=== PATIENT | male | born 1980 | race Caucasian/White ===

== ENCOUNTER 2018-06-15 06:29 | Emergency (ER) | payer MEDICAID ==
[~2018-06-15] VITALS: Ht 175.3 cm; Wt 70.0 kg
[2018-06-15] MEDS ORDERED: KETOROLAC 30 MG/1 ML ONE (06:39)
[2018-06-15] MEDS ORDERED: ONDANSETRON 2MG/ML, 2ML ONE (06:39)
[2018-06-15] MEDS ORDERED: ONDANSETRON 2MG/ML, 2ML IVPush ONE (07:00)
[2018-06-15] MEDS ORDERED: KETOROLAC 30 MG/1 ML IVPush ONE (07:00)
[2018-06-15] MEDS ORDERED: SODIUM CHLORIDE FLUSH 10ML SYR IVF ONE (07:00)
[2018-06-15 07:13] VITALS: BP 116/85
[2018-06-15 07:14] LABS: BASOPHILS # (AUTO) 0.07 x10^3/uL (0-0.1); BASOPHILS % (AUTO) 1 % (0-1); EOSINOPHILS # (AUTO) 0.19 x10^3/uL (0-0.4); EOSINOPHILS % (AUTO) 2 % (1-7); LYMPHOCYTES # (AUTO) 2.68 x10^3/uL (1-3.4); LYMPHOCYTES % (AUTO) 32 % (22-44); MD NO; MEAN CORPUSCULAR HEMOGLOBIN 31.7 pg (27.5-34.5); MEAN CORPUSCULAR HGB CONC 34.1 g/dL (33.2-36.2); MEAN CORPUSCULAR VOLUME 92.8 fL (81-97); MEAN PLATELET VOLUME 8.1 fL (7.4-10.4); MONOCYTES % (AUTO) 6 % (2-9); NEUTROPHILS # (AUTO) 5.06 x10^3/uL (1.8-6.8); NEUTROPHILS % (AUTO) 60 % (42-75); PLATELET COUNT 265 x10^3/uL (130-400); RED BLOOD COUNT 5.22 x10^6/uL (4.38-5.82); RED CELL DISTRIBUTION WIDTH 12.6 % (9.4-14.8)
[2018-06-15 07:17] LABS: ALANINE AMINOTRANSFERASE 32 U/L (12-78); ALBUMIN 3.8 g/dL (3.4-5.0); ANION GAP 7 mmol/L (5-15); CALCIUM 8.5 mg/dL (8.5-10.1); CHLORIDE 112 mmol/L (98-107); CREATININE 0.97 mg/dL (0.7-1.3)
[2018-06-15 07:19] LABS: ALKALINE PHOSPHATASE 105 U/L (45-117); BILIRUBIN,TOTAL 0.6 mg/dL (0.2-1.0); TOTAL PROTEIN 6.7 g/dL (6.4-8.2)
[2018-06-15 07:56] LABS: MICROSCOPIC NOT IND
[2018-06-15 08:02] LABS: CULTURE INDICATED? NO
== END 2018-06-15 08:37 | disposition home or self-care (01) ==
LOC: ED 07:23
DX: R10.11 Right upper quadrant pain (principal)
CPT/HCPCS: 36415; 71045; 76700; 80053; 81003; 83690; 85025; 93005; 96374; 96375; 99285; J1885; J2405

== ENCOUNTER 2018-07-19 20:45 | Emergency (ER) | payer MEDICAID ==
[~2018-07-19] VITALS: Ht 175.3 cm; Wt 78.6 kg
[2018-07-19 20:46] VITALS: BP 131/89
[2018-07-19] MEDS ORDERED: HYDROcodone/APAP 5/325 TABLET ONE (21:22)
[2018-07-19] MEDS ORDERED: HYDROcodone/APAP 5/325 TABLET PO ONE (21:30)
== END 2018-07-19 21:40 | disposition home or self-care (01) ==
LOC: ED 21:34
DX: K02.9 Dental caries, unspecified (principal)
CPT/HCPCS: 64400; 99284

== ENCOUNTER 2018-07-21 09:56 | Emergency (ER) | payer MEDICAID ==
[~2018-07-21] VITALS: Ht 175.3 cm; Wt 80.4 kg
[2018-07-21] MEDS ORDERED: ASPIRIN 81 MG TABLET CHEW PO ONE (10:30)
[2018-07-21] MEDS ORDERED: SODIUM CHLORIDE FLUSH 10ML SYR IVF ONE (10:30)
[2018-07-21 11:00] LABS: MEAN CORPUSCULAR HEMOGLOBIN 32.3 pg (27.5-34.5); MEAN CORPUSCULAR VOLUME 92.3 fL (81-97); MEAN PLATELET VOLUME 8.1 fL (7.4-10.4); PLATELET COUNT 243 x10^3/uL (130-400); RED BLOOD COUNT 4.98 x10^6/uL (4.38-5.82); RED CELL DISTRIBUTION WIDTH 12.5 % (9.4-14.8)
[2018-07-21 11:05] LABS: ALANINE AMINOTRANSFERASE 33 U/L (12-78); ANION GAP 6 mmol/L (5-15); CALCIUM 8.5 mg/dL (8.5-10.1); CHLORIDE 107 mmol/L (98-107); CREATININE 0.81 mg/dL (0.7-1.3)
[2018-07-21 11:09] LABS: ALKALINE PHOSPHATASE 81 U/L (45-117); BILIRUBIN,TOTAL 0.5 mg/dL (0.2-1.0); TOTAL PROTEIN 7.2 g/dL (6.4-8.2); TROPONIN I < 0.015 ng/mL (0.000-0.045)
[2018-07-21] MEDS ORDERED: ASPIRIN 81 MG TABLET CHEW ONE (11:14)
[2018-07-21 11:17] LABS: MD SCAN
[2018-07-21 11:18] LABS: BASOPHILS # (AUTO) 0.02 x10^3/uL (0-0.1); BASOPHILS % (AUTO) 0 % (0-1); EOSINOPHILS # (AUTO) 0.09 x10^3/uL (0-0.4); EOSINOPHILS % (AUTO) 1 % (1-7); LYMPHOCYTES # (AUTO) 1.83 x10^3/uL (1-3.4); LYMPHOCYTES % (AUTO) 25 % (22-44); MONOCYTES # (AUTO) 0.53 x10^3/uL (0.2-0.8); MONOCYTES % (AUTO) 7 % (2-9); NEUTROPHILS # (AUTO) 4.96 x10^3/uL (1.8-6.8); NEUTROPHILS % (AUTO) 67 % (42-75)
[2018-07-21 12:57] LABS: MICROSCOPIC NOT IND
[2018-07-21 13:05] LABS: CULTURE INDICATED? NO
[2018-07-21 13:08] LABS: CANNABINOID SCREEN, URINE Negative (Negative); OPIATE SCREEN, URINE Negative (Negative)
[2018-07-21 13:12] LABS: AMPHETAMINE SCREEN, URINE Negative (Negative); BARBITURATE SCREEN, URINE Negative (Negative); BENZODIAZEPINE SCREEN, URINE Negative (Negative); COCAINE SCREEN, URINE Negative (Negative); METHADONE SCREEN, URINE Negative (Negative)
[2018-07-21 13:31] VITALS: BP 114/69
== END 2018-07-21 13:52 | disposition home or self-care (01) ==
LOC: ED 11:50
DX: R07.89 Other chest pain (principal); F64.9 Gender identity disorder, unspecified; J18.9 Pneumonia, unspecified organism
CPT/HCPCS: 36415; 70450; 71046; 80053; 80307; 81003; 84443; 84484; 85025; 93005; 99285

== ENCOUNTER 2018-07-25 20:15 | Emergency (ER) | payer MEDICAID ==
[~2018-07-25] VITALS: Ht 175.3 cm; Wt 77.7 kg
[2018-07-25] MEDS ORDERED: LIDOCAINE-MPF 2%, 2ML ONE (20:51)
[2018-07-25] MEDS ORDERED: HYDROcodone/APAP 5/325 TABLET ONE (20:59)
[2018-07-25] MEDS ORDERED: HYDROcodone/APAP 5/325 TABLET PO ONE (21:00)
[2018-07-25] MEDS ORDERED: LIDOCAINE 1%, 10ML INFIL ONE (21:00)
[2018-07-25] MEDS ORDERED: ONDANSETRON ODT 4 MG ONE (21:06)
[2018-07-25 22:11] VITALS: BP 158/92
== END 2018-07-25 22:13 | disposition home or self-care (01) ==
LOC: ED 21:05
DX: K08.89 Other specified disorders of teeth and supporting structures (principal); F20.9 Schizophrenia, unspecified
CPT/HCPCS: 64400; 99284